=== PATIENT | male | born 1960 | race Caucasian/White ===

== ENCOUNTER 2018-03-14 11:18 | Emergency (ER) | payer MEDICARE, OTHER ==
--- NOTE | 2018-03-14 12:15 | ED Physician Documentation ---
PD HPI ABD PAIN - Stated complaint Stated Complaint: BLOATING- REF FOR PARACENTESIS - Chief complaint Chief Complaint: Abd Pain - History obtained from History obtained from: Patient - History of Present Illness Timing - onset: How many days ago (2-3) Timing - duration: Days (2-3) Timing - details: Gradual onset, Still present Quality: Aching, Stabbing, Fullness/distended Location: All over / everywhere Radiation: Chest. No: Lower back, Left flank, Right flank Improved by: Laying still Worsened by: Eating, Moving Associated symptoms: No: Fever, Nausea, Vomiting Similar symptoms before: Diagnosis (hepatobiliary ductal CA with biliary HTN. Had ascites drained 3 weeks ago and few months prior to that. Had improved symptoms after paracentesis.) Review of Systems Constitutional: denies: Fever, Chills Cardiac: reports: Pedal edema. denies: Chest pain / pressure, Palpitations, Calf pain Respiratory: reports: Dyspnea. denies: Cough, Wheezing GI: reports: Abdominal Pain, Abdominal Swelling, Nausea. denies: Vomiting, Constipation, Diarrhea : denies: Dysuria, Frequency PD PAST MEDICAL HISTORY - Past Medical History Cardiovascular: None Respiratory: None Neuro: None Endocrine/Autoimmune: None GI: Other (liver cancer newly diagnoses.) - Allergies Allergies/Adverse Reactions: Allergies Allergy/AdvReac Type Severity Reaction Status Date / Time No Known Drug Allergies Allergy Verified 03/14/18 11:32 PD ED PE NORMAL - Vitals Vital signs reviewed: Yes - General General: Alert and oriented X 3, Well developed/nourished, Other (does appear some labored breathing without wheezing. ) - HEENT HEENT: PERRL (nonicteric), Pharynx benign - Neck Neck: Supple, no meningeal sign, No adenopathy - Cardiac Cardiac: RRR, No murmur - Respiratory Respiratory: Clear bilaterally - Abdomen Abdomen: Soft, No organomegaly, Other (very distended and tense, no redness nor rash. No draiange. Small reducible umbilical hernia. The girth and height of the abd is pushing up against diaphragm apparently. ) - Derm Derm: Normal color, Warm and dry - Extremities Extremities: No tenderness to palpate, Normal ROM s pain, No calf tenderness / cord. No: No edema (just mild leg edema) - Neuro Neuro: Alert and oriented X 3, No motor deficit, No sensory deficit, Normal speech Results - Vitals Vitals: Oxygen O2 Source Room air - Labs Labs: Microbiology 03/14/18 14:15 Body Fluid Culture - Preliminary Ascities Fluid Laboratory Tests 03/14/18 03/14/18 03/14/18 12:10 12:10 12:10 WBC 10.2 RBC 3.61 L Hgb 11.6 L Hct 34.2 L MCV 94.7 H MCH 32.1 H MCHC 33.9 RDW 18.5 H Plt Count 62 L MPV 9.1 Neut # (Auto) 8.0 H Lymph # (Auto) 0.8 L Ferry # (Auto) 1.2 H Eos # (Auto) 0.1 Baso # (Auto) 0.0 Absolute Nucleated RBC 0.01 Nucleated RBC % 0.1 PT 20.9 H INR 1.9 H APTT 42.3 H Sodium 127 L Potassium 3.9 Chloride 94 L Carbon Dioxide 26 Anion Gap 7.0 BUN 20 Creatinine 0.6 Estimated GFR (MDRD) 139 Glucose 119 H Calcium 7.9 L Total Bilirubin 2.0 H AST 49 H ALT 30 Alkaline Phosphatase 207 H Total Protein 6.5 L Albumin 2.6 L Globulin 3.9 Albumin/Globulin Ratio 0.7 L Lipase 26 Fluid Source Fluid Color Fluid Clarity Fluid WBC Fluid RBC Fluid Neutrophils % Fluid Lymphocytes % Fld Mesothelial Cell % 03/14/18 14:15 WBC RBC Hgb Hct MCV MCH MCHC RDW Plt Count MPV Neut # (Auto) Lymph # (Auto) Ferry # (Auto) Eos # (Auto) Baso # (Auto) Absolute Nucleated RBC Nucleated RBC % PT INR APTT Sodium Potassium Chloride Carbon Dioxide Anion Gap BUN Creatinine Estimated GFR (MDRD) Glucose Calcium Total Bilirubin AST ALT Alkaline Phosphatase Total Protein Albumin Globulin Albumin/Globulin Ratio Lipase Fluid Source PLEURAL Fluid Color LIGHT YELLOW Fluid Clarity HAZY Fluid WBC 118 Fluid RBC 441 Fluid Neutrophils % 10 Fluid Lymphocytes % 39 Fld Mesothelial Cell % 51 Procedures - Paracentesis Preparation: Consent obtained, Ultrasound guidance, Sterile prep and drape, Local anesthesia Location: RLQ Technique: Seldinger Fluid: Clear, Sent for cell count, Sent for culture, Volume - enter cc (6000) PD MEDICAL DECISION MAKING - ED course Complexity details: considered differential (outpatient Radiology tried to get referral and set up procedure but could not get it today, and likely would have gotten into next week to set up. He is symptomatic enough to do the paracentesis today. ), d/w patient - Sepsis Event Vital Signs: Oxygen O2 Source Room air Departure - Departure Disposition: 01 Home, Self Care Clinical Impression: Ascites of liver Dyspnea Qualifiers: Dyspnea type: shortness of breath Qualified Code(s): R06.02 - Shortness of breath Liver cancer Qualifiers: Liver malignancy type: unspecified primary liver malignancy Qualified Code(s): C22.8 - Malignant neoplasm of liver, primary, unspecified as to type Condition: Stable Record reviewed to determine appropriate education?: Yes Instructions: Paracentesis Dc Follow-Up: DAO REYNA MD [Primary Care Provider] - Comments: Continue usual medications. Drink adequate fluids at home. Rest today. Follow -up with your oncologist as planned next week. Have him set up regular scheduled procedures of the paracentesis as this will likely be recurring problem. Discharge Date/Time: 03/14/18 15:00
[2018-03-14 12:18] LABS: BASOPHILS % (AUTO) 0.1 %; EOSINOPHILS # (AUTO) 0.1 10^3/uL (0.0-0.7); EOSINOPHILS % (AUTO) 1.1 %; HGB - HEMOGLOBIN 11.6 g/dL (14.0-18.0); LYMPHOCYTES # (AUTO) 0.8 10^3/uL (1.5-3.5); LYMPHOCYTES % (AUTO) 8.3 %; MEAN CORPUSCULAR HEMOGLOBIN 32.1 pg (27.0-31.0); MEAN CORPUSCULAR HGB CONC 33.9 g/dL (32.0-36.0); MEAN CORPUSCULAR VOLUME 94.7 fL (80.0-94.0); MEAN PLATELET VOLUME 9.1 fL (7.4-11.4); MONOCYTES # (AUTO) 1.2 10^3/uL (0.0-1.0); MONOCYTES % (AUTO) 11.7 %; NEUTROPHILS % (AUTO) 78.8 %; PLT - PLATELET COUNT 62 10^3/uL (130-450); RED BLOOD COUNT 3.61 10^6/uL (4.70-6.10); RED CELL DISTRIBUTION WIDTH 18.5 % (12.0-15.0); WHITE BLOOD COUNT 10.2 x10^3/uL (4.8-10.8)
[2018-03-14] MEDS ORDERED: ONDANSETRON 4 MG/2 ML VIAL IVP STA (12:25)
[2018-03-14] MEDS ORDERED: SODIUM CHLORIDE 0.9% 1,000 ML IV ONE (12:26)
[2018-03-14] MEDS ORDERED: MORPHINE 10 MG/ML VIAL IVP STA (12:26)
[2018-03-14 12:30] LABS: ALBUMIN 2.6 g/dL (3.2-5.5); ALBUMIN/GLOBULIN RATIO 0.7 (1.0-2.2); CALCIUM 7.9 mg/dL (8.5-10.3); CREATININE 0.6 mg/dL (0.6-1.2); TOTAL PROTEIN 6.5 g/dL (6.7-8.2)
[2018-03-14 12:38] LABS: INR 1.9 (0.8-1.2); PT - PROTHROMBIN TIME 20.9 secs (9.9-12.6)
[2018-03-14] MEDS ORDERED: LIDOCAINE 1%-EPI 1:100000 30 ML MDV ONE (13:43)
[2018-03-14 14:18] VITALS: BP 118/73
[2018-03-14 14:38] LABS: CC,BF RBC 441 /mm^3
[2018-03-14 15:15] LABS: BF COLOR LIGHT YELLOW; BF SOURCE PLEURAL; LYMPHOCYTES %,BODY FLUID 39; MESOTHELIAL %, BF 51 %
== END 2018-03-14 15:00 | disposition home or self-care (01) ==
LOC: ED 11:18
DX: R18.8 Other ascites (principal); C22.9 Malignant neoplasm of liver, not specified as primary or secondary; K42.9 Umbilical hernia without obstruction or gangrene
CPT/HCPCS: 36415; 49082; 49083; 80053; 83690; 85025; 85610; 85730; 87070; 87205; 89051; 96374; 96375; 99283

== ENCOUNTER 2018-04-02 10:25 | Day surgery (SDC) | payer MEDICARE ==
[~2018-04-02 10:25] MED LIST: ceFAZolin 3 GM/20 ML SYRINGE ONE
[2018-04-02 11:05] LABS: EOSINOPHILS # (AUTO) 0.2 10^3/uL (0.0-0.7); EOSINOPHILS % (AUTO) 0.9 %; HGB - HEMOGLOBIN 12.5 g/dL (14.0-18.0); LYMPHOCYTES % (AUTO) 5.5 %; MEAN CORPUSCULAR HEMOGLOBIN 32.3 pg (27.0-31.0); MEAN CORPUSCULAR HGB CONC 34.6 g/dL (32.0-36.0); MEAN CORPUSCULAR VOLUME 93.2 fL (80.0-94.0); MEAN PLATELET VOLUME 8.8 fL (7.4-11.4); MONOCYTES # (AUTO) 1.1 10^3/uL (0.0-1.0); MONOCYTES % (AUTO) 5.9 %; NEUTROPHILS # (AUTO) 16.7 10^3/uL (1.5-6.6); NEUTROPHILS % (AUTO) 87.7 %; PLT - PLATELET COUNT 78 10^3/uL (130-450); RED BLOOD COUNT 3.86 10^6/uL (4.70-6.10); RED CELL DISTRIBUTION WIDTH 17.9 % (12.0-15.0)
[2018-04-02] MEDS ORDERED: LACTATED RINGERS 1,000 ML IV ONE (11:06)
[2018-04-02 11:13] LABS: ALBUMIN 2.1 g/dL (3.2-5.5); ALBUMIN/GLOBULIN RATIO 0.5 (1.0-2.2); BILIRUBIN,TOTAL 3.6 mg/dL (0.2-1.0); CALCIUM 8.2 mg/dL (8.5-10.3); CREATININE 0.9 mg/dL (0.6-1.2); TOTAL PROTEIN 6.2 g/dL (6.7-8.2)
[2018-04-02 11:14] LABS: PT - PROTHROMBIN TIME 21.7 secs (9.9-12.6)
[2018-04-02] MEDS ORDERED: BUPIVACAINE 0.5% PF 30 ML VIAL ONE (12:31)
[2018-04-02] MEDS ORDERED: BUPIVACAINE 0.5%-EPI 1:200000 PF 30 ML VIAL ONE (12:33)
[2018-04-02] MEDS ORDERED: BUPIVACAINE 0.5%-EPI 1:200000 PF 30 ML VIAL SUBQ ONE ×2 (13:02)
[2018-04-02] MEDS ORDERED: PROPOFOL 200 MG/20 ML VIAL IVP ONE (13:15)
[2018-04-02] MEDS ORDERED: KETAMINE 500 MG/10 ML VIAL IVP ONE (13:15)
--- NOTE | 2018-04-02 13:29 | OPERATIVE REPORT ---
Operative Report - General Planned Procedure: Placement of peritoneal catheter to drain refractory malignant ascities Pre-Op Diagnosis: Refractory malignant ascities Procedure Performed: Placement of peritoneal catheter to drain refractory malignant ascities Post Op Diagnosis: Refractory malignant ascities - Procedure Note Primary Surgeon: Nitin Rand MD Anesthesia Provider: Jeannine Mendez CRNA Anesthesia Technique: Local (22 mL 1/2% marcaine), Moderate sedation IV Fluids (mL): 400 Estimated Blood Loss (mL): 1 Drain/Tube Type: Other (Pleur-X catheter left in place in abdomen. 2500 mL drained as part of the procedure.) Complications: None. - Other Other Information/Narrative: OPERATIVE DESCRIPTION/REPORT: After verbal and written informed consent was obtained detailing the risks of infection, bleeding requiring transfusion with its risks, nerve injury, and , and after I met with the patient confirming the surgery and the site of the surgery, the patient was brought to the operative suite and placed supine on the operating table. Great care was taken to avoid pressure points to prevent pressure necrosis or nerve injury. Monitoring devices were applied along with TEDs and pneumatic compressive stockings (to prevent DVT). The patient received preoperative antibiotics for surgical prophylaxis. Jeannine Mendez CRNA sedated the patient for the entire procedure. The patient was prepped and draped in the usual sterile manner. A "time in" then confirmed that the patient was identified with 3 identifiers (name, date and medical record number), the history and physical was in the chart, the signed consent confirming the procedure was in the chart, the patient was in the correct position, the aforementioned prophylactic measures were in place or given, we had the correct personnel and equipment to complete the procedure and that anesthesia, surgery and nursing were given an opportunity to express any concerns. With the agreement of everyone in the room, we proceeded with the operation. The Pleurx catheter was measured against the patient's anterior abdominal wall on the right-hand side due to my concerns about cellulitis on the left-hand side of his abdomen. 2 incisions were mapped out on the skin to allow for placement of the catheter subcutaneously with the cuff approximately half a centimeter away from the superior and lateral most incision. After anesthetizing the skin and subcutaneous tissues with half percent Marcaine these 2 incisions were made. Hemostasis was obtained using Bovie electrocautery. The passer was used to tunnel from the superior lateral most incision to the inferomedial most incision with catheter attached. Again, the cuff was placed half centimeter away from the superior lateral most incision subcutaneously. A finder needle was then used to enter the abdomen with return of yellow ascites. A wire was then placed into the needle and hence into the abdomen holding the place. The needle was removed and a dilator followed by a dilator and sheath were then placed over the wire taking great care to never the site of the wire. With the largest dilator and sheath was in place the dilator and wire were removed and the catheter placed into the sheath. The sheath was then pulled away leaving the catheter in place in the abdomen. At this point, 2500 mL of ascites was removed. While the ascending is being removed the superior lateral most incision was partially closed using a 3-0 nylon which was then Nader sandaled about the drained to ensure that it did not fall out. The subcutaneous tissues at the inferomedial incision were closed about the drain using a 3-0 Vicryl and 2 subcuticular stitches were used to close the skin over this drain. The prep was washed off and the inferior medial most incision was also approximated using Dermabond. A dressing was applied at the site where the drain was coming out through the skin. At this point a time out was performed that confirmed that all the counts were correct, the procedure that was performed, the blood loss, the IV fluids administered, and the patients condition. Having tolerated the procedure well , the patient was subsequently taken to recovery room in poor but stable condition. Dragon disclaimer: This document was created in part using voice recognition technology. Because of the inherent limitations of the system ([employer]'s [employer] user manual states that the licensee understands that speech recognition is a statistical process and that recognition errors are inherent in the process), occasional same sounding word substitutions and grammatical errors do occur and persist despite proofreading. Please read this document for context.
[2018-04-02 13:55] VITALS: BP 112/74
== END 2018-04-02 10:26 | disposition home or self-care (01) ==
LOC: SDS 10:25
PROVIDERS: ATTEND Surgery
PROC: 0W9G30Z Drainage of Peritoneal Cavity with Drainage Device, Percutaneous Approach (ICD-10-PCS; principal; 2018-04-02 11:30)
DX: R18.0 Malignant ascites (principal); C22.8 Malignant neoplasm of liver, primary, unspecified as to type; D69.6 Thrombocytopenia, unspecified
CPT/HCPCS: 49418; 80053; 85025; 85610; C1729; J7120